=== PATIENT | male | born 1975 | race Caucasian/White ===

== ENCOUNTER 2016-11-27 01:27 | Emergency (ER) | payer BC ==
[~2016-11-27] VITALS: Ht 167.6 cm; Wt 108.1 kg
[2016-11-27 02:43] VITALS: BP 136/93
== END 2016-11-27 02:51 | disposition home or self-care (01) ==
LOC: EME 01:27 → EXP 01:27
DX: M75.01 Adhesive capsulitis of right shoulder (principal)
CPT/HCPCS: 73030; 99281; 99284; J1885; J8540